=== PATIENT | female | born 1975 | race Caucasian/White ===

== ENCOUNTER 2018-07-03 14:26 | Emergency (ER) | payer BC ==
[~2018-07-03] VITALS: Ht 167.6 cm; Wt 50.0 kg
[2018-07-03] MEDS ORDERED: BIRTH CONTROL (14:37)
[2018-07-03 15:45] LABS: CALCIUM 9.2 mg/dL (8.4-10.2); EOS # 0.1 (0.04-0.40); EOS % 1.4 % (1.0-5.0); HEMATOCRIT 40.4 % (37.0-47.0); HEMOGLOBIN 13.4 g/dL (12.5-16.0); LYMPH# 2.5 (1.50-4.00); MEAN CELL VOLUME 85 fl (78-100); MEAN CORPUSCULAR HEMOGLOBIN 28 pg (27-31); MEAN CORPUSCULAR HGB CONC 33 g/dL (33-37); MEAN PLATELET VOLUME 9.8 fl (7.4-10.4); MONO # 0.6 (0.20-0.80); NEU # 4.5 (1.40-6.50); PLATELET COUNT 296 K/mm3 (130-400); POTASSIUM 4.5 mmol/L (3.6-5.0); RED BLOOD COUNT 4.75 M/mm3 (4.10-5.30); RED CELL DISTRIBUTION WIDTH 13.3 % (11.5-14.5); TOTAL BILIRUBIN 0.4 mg/dL (0.2-1.3); TOTAL PROTEIN 7.1 g/dL (6.3-8.2); WHITE BLOOD COUNT 7.7 K/mm3 (4.8-10.8)
[2018-07-03 16:39] LABS: PH-URINE 6.5 (5.0 - 8.0); URINE APPEARANCE HAZY; URINE BILIRUBIN NEGATIVE (NEGATIVE); URINE BLOOD TRACE (NEGATIVE); URINE COLOR YELLOW; URINE GLUCOSE NEGATIVE (NEGATIVE); URINE KETONE NEGATIVE (NEGATIVE); URINE LEUKOCYTE ESTERASE NEGATIVE (NEGATIVE); URINE MUCUS PRESENT (NOT PRESENT); URINE NITRATE NEGATIVE (NEGATIVE); URINE PROTEIN(semi-quant) NEGATIVE (NEGATIVE); URINE UROBILINOGEN NORMAL (NORMAL); URINE WBC 0-1 /hpf (0-3)
[2018-07-03 16:51] VITALS: BP 142/99
== END 2018-07-03 16:51 | disposition home or self-care (01) ==
LOC: ED 14:26
PROVIDERS: Nurse Practitioner
DX: R11.0 Nausea (principal); R53.81 Other malaise; R42 Dizziness and giddiness